=== PATIENT | male | born 1970 | race Caucasian/White ===

== ENCOUNTER 2024-07-24 11:14 | Emergency (ER) | payer OTHER ==
[2024-07-24] MEDS: Ciprofloxacin 0.3% Ophth Soln 2.5 ML Bottle EYELF ONE (11:53)
== END 2024-07-24 12:00 | disposition home or self-care (01) ==
LOC: VM.ED 11:14
DX: H10.9 Unspecified conjunctivitis (principal)
CPT/HCPCS: 99282; 99283; A9270-GY